=== PATIENT | female | born 1950 | race Two or more races ===

== ENCOUNTER 2018-08-27 11:50 | Emergency (ER) | payer MEDICARE ==
[~2018-08-27] VITALS: Ht 160 cm; Wt 59.0 kg
[2018-08-27] MEDS ORDERED: ACETAMINOPHEN 325 MG TABLET. PO ONE (12:15)
--- NOTE | 2018-08-27 12:19 | PHYS DOC ---
Past Medical History Past Medical History: Diabetes-Type II Additional Past Medical Histor: ulcerative colitis Past Surgical History: Cholecystectomy, Hysterectomy Additional Past Surgical Histo: partial thyroidectomy Alcohol Use: None Drug Use: None Adult General Chief Complaint Chief Complaint: MECHANICAL FALL HPI HPI Patient is a 68-year-old female who presents to the emergency department for evaluation. She was standing on a low step stool, reaching for something high shelf, when she lost her footing, and fell to the ground, landing on the left side of her body. She complains primarily of left shoulder pain, as well as pain in her medial clavicle, where she has some soft tissue swelling. She does not think she hit her head, but she does complain of some left-sided neck pain. She does not have a headache. She did not lose consciousness, and does not take any anticoagulants. She did not have any dizziness or lightheadedness, numbness , or weakness. Range of motion left shoulder is limited by pain, although the patient is able to fully flex and extend her hand and elbow without discomfort. Movement of her left shoulder and neck to worsen her pain. There are no alleviating factors to her symptoms otherwise. Review of Systems Review of Systems Constitutional: Denies fever or chills [] Eyes: Denies change in visual acuity, redness, or eye pain [] HENT: Denies nasal congestion or sore throat [] Respiratory: Denies cough or shortness of breath [] Cardiovascular: The patient denies any shortness of breath, chest pain, palpitations, or orthopnea[] GI: Denies abdominal pain, nausea, vomiting, bloody stools or diarrhea [] : Denies dysuria or hematuria [] Musculoskeletal: Denies back pain or joint pain except as noted in the history of present illness [] Integument: Denies rash or skin lesions [] Neurologic: Denies headache, focal weakness or sensory changes [] Endocrine: Denies polyuria or polydipsia [] All other systems were reviewed and found to be within normal limits, except as documented in this note. Current Medications Current Medications Current Medications Medications (Trade) Dose Ordered Sig/Ignacio Start Time Stop Time Status Last Admin Dose Admin Acetaminophen (Tylenol) 650 mg 1X ONCE 08/27/18 12:15 08/27/18 12:17 DC 08/27/18 12:26 650 MG Allergies Allergies Allergies Coded Allergies Type Severity Reaction Last Updated Verified ofloxacin Allergy Intermediate 08/27/18 Yes Physical Exam Physical Exam PHYSICAL EXAM: CONSTITUTIONAL: Well developed, well nourished HEAD: normocephalic, atraumatic EENT: PERRL, EOMI. Conjunctivae normal color, sclerae non-icteric; moist mucous membranes. NECK: Is full range of motion of the cervical spine, with mild tenderness to palpation of the left paraspinal muscles, without definite focal bony midline tenderness to palpation. LUNGS: Lungs CTA, breathing even and unlabored. Normal air movement. HEART: Regular rate and rhythm, no murmur CHEST: No deformity; non-tender ABDOMEN: The abdomen is soft, and non-tender, no masses or bruits. EXTREM: There is swelling noted to the medial clavicle on the left, with some tenderness to palpation in this area. The remainder of the sternum and the remainder of the left clavicle are nontender. The left shoulder itself is only minimally tender, and there appears to be intact range of motion, with internal and external rotation as well as flexion and extension of the left shoulder, although such movement does cause discomfort to the medial clavicle. The left humerus, elbow, forearm, and hand are nontender, and atraumatic, with normal range of motion. There is no neurological deficit in the left upper extremity, with distal function intact 3 nerves. The remainder of the extremities are atraumatic, with Normal ROM; no deformity, no calf tenderness. Normal pulses palpable in all extremities. There is no pedal edema. SKIN: No rash; no diaphoresis NEURO: Alert; normal speech and cognition; CN's grossly intact; strength grossly intact without focal deficit. BACK: No CVA TTP.There is no bony tenderness to palpation of the thoracic or lumbar spine. Current Patient Data Vital Signs Vital Signs Date Time Temp Pulse Resp B/P (MAP) Pulse Ox O2 Delivery O2 Flow Rate FiO2 08/27/18 13:30 93 18 99 08/27/18 11:55 97.9 173/91 (118) Room Air 97.9 EKG EKG [] Radiology/Procedures Radiology/Procedures [PROCEDURE: CHEST AP ONLY Indication:FALL X TODAY LEFT SIDED PAIN TECHNIQUE:Portable AP chest X-ray COMPARISON:None FINDINGS: Heart is normal in size. Lungs are clear. No pneumothorax or pleural effusion. Fracture of the left medial clavicle. Visualized bony thorax is within normal limits. IMPRESSION: No acute pulmonary process. ] PROCEDURE: CLAVICLE LEFT Indication: Trauma TECHNIQUE: 2 views of the left clavicle COMPARISON: None Findings/ impression: There is separation of the sternoclavicular joint measuring about 2.3 cm with a mildly displaced fracture of the medial clavicle. Acromioclavicular and glenohumeral joints are intact. Visualized lung apices are clear. PROCEDURE: SHOULDER 2+V LEFT Indication:FALL X TODAY LEFT SHOULDER PAIN TECHNIQUE: 3 views of the left shoulder COMPARISON:None FINDINGS/ impression: Separation of the left sternoclavicular joint with mildly displaced fracture of the medial clavicle. The acromioclavicular and glenohumeral joints are intact. PROCEDURE: CT CERVICAL SPINE WO CONTRAST PQRS Compliance statement: One or more of the following individualized dose reduction techniques were utilized for this examination: 1. Automated exposure control. 2. Adjustment of the mA and/or kV according to patient size. 3. Use of iterative reconstruction technique. Indication:LEFT SHOULDER AND NECK PAIN TODAY AFTER FALL TECHNIQUE: CT of the cervical spine without IV contrast with multiplanar reformats. COMPARISON:None FINDINGS: The cervical spine is in normal anatomic alignment. Atlantoaxial joint interval is preserved. Very mild anterior compression deformity seen of the superior endplate of the T1 vertebral body. Otherwise no compression deformities in the cervical spine. The facet joints are in normal anatomic alignment with multilevel moderate facet arthropathy. The noncontrast appearance of the neck soft tissue is within normal limits. Fracture of the left medial clavicle with separation of the sternoclavicular joint with small surrounding hematoma and inflammation. Clear lung apices. 2.0 x 1.2 cm hypoattenuating left thyroid lobe nodule. IMPRESSION: 1. No acute cervical spine fracture. 2. Subtle Very mild superior anterior compression deformity of the T1 vertebral body. Correlate with focal tenderness. 3. Mildly displaced fracture of the left medial clavicle with separation of the sternoclavicular joint and small surrounding hematoma. 4. Left thyroid lobe nodule. Further evaluation with nonemergent ultrasound recommended. Course & Med Decision Making Course & Med Decision Making Pertinent Imaging studies reviewed. (See chart for details) [1:35 PM: The patient's condition remains stable. She is a little hypertensive, but states she suspects that this is related to the pain, as she states she does not normally have high blood pressure. I did discuss importance of close follow-up and monitoring of her blood pressure as an outpatient. The patient does have a medial clavicular fracture. I suspect that she fell on her shoulder , and had to force transmitted to the medial clavicle. She does not appear to have any posterior dislocation. On the CT of the cervical spine, I discussed the images with radiologist, and the patient's great vessels all appear clean, without any haziness or hematoma surrounding it to suggest injury. I also discussed the patient's case with trauma surgery on-call as well as orthopedics , and none of us believe that we need to get emergent CT angiography to definitively rule out vascular injury despite the medial clavicle fracture at this time. I also discussed this with the patient and her , who is a retired physician. Dr. Berg will come see the patient in the emergency department as well. I discussed this result with the patient and her , the need for close orthopedic follow-up, use of sling, and return precautions. The patient states she is very sensitive to pain medication and does not want a prescription for such. I discussed use of [id number] analgesics as needed. ] Dragon Disclaimer Dragon Disclaimer This electronic medical record was generated, in whole or in part, using a voice recognition dictation system. Departure Departure Impression: Primary Impression: Clavicle fracture Disposition: 01 HOME, SELF-CARE Condition: STABLE Referrals: JAREK BERG MD Patient Instructions: Arm Sling Use-Brief, Clavicle Fracture RIK FOSS MD Aug 27, 2018 12:19
--- NOTE | 2018-08-27 12:54 | RAD ---
Indication: Trauma TECHNIQUE: 2 views of the left clavicle COMPARISON: None Findings/ impression: There is separation of the sternoclavicular joint measuring about 2.3 cm with a mildly displaced fracture of the medial clavicle. Acromioclavicular and glenohumeral joints are intact. Visualized lung apices are clear. Electronically signed by: Wang Cortes DO (08/27/2018 12:51 PM) [facility]
--- NOTE | 2018-08-27 12:56 | RAD ---
Indication:FALL X TODAY LEFT SIDED PAIN TECHNIQUE:Portable AP chest X-ray COMPARISON:None FINDINGS: Heart is normal in size. Lungs are clear. No pneumothorax or pleural effusion. Fracture of the left medial clavicle. Visualized bony thorax is within normal limits. IMPRESSION: No acute pulmonary process. Electronically signed by: Wang Cortes DO (08/27/2018 12:52 PM) [facility]
--- NOTE | 2018-08-27 12:56 | RAD ---
Indication:FALL X TODAY LEFT SHOULDER PAIN TECHNIQUE: 3 views of the left shoulder COMPARISON:None FINDINGS/ impression: Separation of the left sternoclavicular joint with mildly displaced fracture of the medial clavicle. The acromioclavicular and glenohumeral joints are intact. Electronically signed by: Wang Cortes DO (08/27/2018 12:52 PM) [facility]
--- NOTE | 2018-08-27 13:11 | RAD ---
PQRS Compliance statement: One or more of the following individualized dose reduction techniques were utilized for this examination: 1. Automated exposure control. 2. Adjustment of the mA and/or kV according to patient size. 3. Use of iterative reconstruction technique. Indication:LEFT SHOULDER AND NECK PAIN TODAY AFTER FALL TECHNIQUE: CT of the cervical spine without IV contrast with multiplanar reformats. COMPARISON:None FINDINGS: The cervical spine is in normal anatomic alignment. Atlantoaxial joint interval is preserved. Very mild anterior compression deformity seen of the superior endplate of the T1 vertebral body. Otherwise no compression deformities in the cervical spine. The facet joints are in normal anatomic alignment with multilevel moderate facet arthropathy. The noncontrast appearance of the neck soft tissue is within normal limits. Fracture of the left medial clavicle with separation of the sternoclavicular joint with small surrounding hematoma and inflammation. Clear lung apices. 2.0 x 1.2 cm hypoattenuating left thyroid lobe nodule. IMPRESSION: 1. No acute cervical spine fracture. 2. Subtle Very mild superior anterior compression deformity of the T1 vertebral body. Correlate with focal tenderness. 3. Mildly displaced fracture of the left medial clavicle with separation of the sternoclavicular joint and small surrounding hematoma. 4. Left thyroid lobe nodule. Further evaluation with nonemergent ultrasound recommended. Electronically signed by: Wang Cortes DO (08/27/2018 1:07 PM) [facility]
[2018-08-27 13:30] VITALS: BP 212/102
[2018-08-27] MEDS ORDERED: TRAM50TA PO (13:48)
[2018-08-27] MEDS ORDERED: LIDO700A39 TP (13:48)
== END 2018-08-27 13:56 | disposition home or self-care (01) ==
LOC: ER 11:50
DX: S42.012A Anterior displaced fracture of sternal end of left clavicle, initial encounter for closed fracture (principal); S43.205A Unspecified dislocation of left sternoclavicular joint, initial encounter; E04.1 Nontoxic single thyroid nodule; E11.9 Type 2 diabetes mellitus without complications; Z90.49 Acquired absence of other specified parts of digestive tract; Z90.710 Acquired absence of both cervix and uterus; E89.0 Postprocedural hypothyroidism; Z88.1 Allergy status to other antibiotic agents; W08.XXXA Fall from other furniture, initial encounter; Y93.89 Activity, other specified; Y92.89 Other specified places as the place of occurrence of the external cause; Y99.8 Other external cause status
CPT/HCPCS: 71045; 72125; 73000; 73030; 99284-25

== ENCOUNTER → 2018-10-24 | Outpatient (CLI) | payer MEDICARE ==
[~2018-10-24] MED LIST: LIDO700A39 TP; TRAM50TA PO
[2018-10-24 13:18] LABS: ALBUMIN 3.9 g/dL (3.4-5.0); CALCIUM 9.5 mg/dL (8.5-10.1); CREATININE 0.7 mg/dL (0.6-1.0); GFR 82.7; POTASSIUM 4.3 mmol/L (3.5-5.1); TOTAL BILIRUBIN 0.5 mg/dL (0.2-1.0)
[2018-10-24 13:19] LABS: CHOLESTEROL/HDL RATIO 2.9
[2018-10-24 16:13] LABS: CREAT RD UR 22.4 mg/dL (Not Estab.); MICRO CREAT RATIO <13.4 mg/g creat (0.0-30.0); MICROALB RD UR <3.0 ug/mL (Not Estab.)
[2018-10-24 22:09] LABS: HEMOGLOBIN A1C 6.7 % (4.8-5.6)
== END | disposition home or self-care (01) ==
LOC: LAB 12:18
PROVIDERS: ATTEND Family Medicine
DX: E11.9 Type 2 diabetes mellitus without complications (principal)
CPT/HCPCS: 36415; 80053; 80061; 82043; 82570; 83036